=== PATIENT | female | born 1945 | race Caucasian/White ===

== ENCOUNTER 2020-07-14 17:46 | Observation (INO) ==
[2020-07-14] MEDS ORDERED: 0.9 % Sodium Chloride 1,000 ML IVC ONE (18:42)
[2020-07-14] MEDS ORDERED: Ondansetron 4 MG/2 ML VIAL IVP ONE (18:42)
[2020-07-14] MEDS ORDERED: Isovue-370 500 ML BOTTLE IVP ONE (18:43)
[2020-07-14 18:59] LABS: Basophils % 0.6 %; Eosinophils % 0.6 %; Hematocrit 38.8 % (35.3-44.9); Hemoglobin 12.6 g/dL (11.5-15.4); Immature Granulocytes % 0.8 % (0-4); Lymphocytes # 0.6 K/mcL (0.6-4.6); Lymphocytes % 17.8 %; Mean Corpuscular HGB Conc 32.5 g/dL (31.6-35.5); Mean Corpuscular Volume 92.4 fL (83.0-100.0); Mean Platelet Volume 10.3 fL (9.4-12.4); Monocytes # 0.6 K/mcL (0.0-1.3); Monocytes % 16.4 %; Neutrophils # 2.3 K/mcL (1.6-8.9); Platelet Count 144 K/mcL (140-400); Red Cell Distribution Width 14.7 % (11.5-14.5); Segmented Neutrophils % 63.8 %; White Blood Count 3.6 K/mcL (4.3-11.1)
[2020-07-14 19:19] LABS: Alanine Aminotransferase 23 Units/L (7-52); Albumin 4.2 g/dL (3.5-5.7); Albumin/Globulin Ratio 1.4 (1.1-2.2); Alkaline Phosphatase 70 Units/L (34-104); Aspartate Amino Transferase 34 Units/L (13-39); BUN/Creatinine Ratio 25 (6-26); Bilirubin,Total 0.9 mg/dL (0.3-1.0); Blood Urea Nitrogen 30 mg/dL (8-23); Calcium 9.2 mg/dL (8.6-10.3); Carbon Dioxide 29 mEq/L (23-29); Chloride 99 mEq/L (98-107); Glucose 107 mg/dL (70-105); Lipase 39 Units/L (11-82); Osmolality,Calculated 291 (280-300); Potassium 3.7 mEq/L (3.5-5.1); Sodium 137 mEq/L (136-145); Total Protein 7.2 g/dL (6.4-8.9); eGFR For African Americans 52 (> 60); eGFR For Non-African Americans 43 (> 60)
[2020-07-14 19:37] LABS: Bilirubin,Urine Negative (Negative); Blood,Urine Negative (Negative); Clarity,Urine Clear (Clear); Color,Urine Light-Yellow (Yellow); Glucose,Urine (UA) Normal (Normal); Ketones,Urine Negative (Negative); Leukocyte Esterase,Urine Moderate (Negative); Mucus,Urine Few per lpf (None-Few); Nitrite,Urine Negative (Negative); PH,Urine 6.5 pH Units (5.0-8.0); Protein,Urine Negative (Neg-Trace); RBC,Urine 0-3 per hpf (0-3); Specific Gravity,Urine 1.017 (1.010-1.025); Squamous Epithelial Cell,Urine Few per hpf (None-Few); Urobilinogen,Urine Normal (Normal)
[2020-07-14 20:56] LABS: Troponin I < 0.03 ng/mL (< 0.04)
[2020-07-14] MEDS ORDERED: Naloxone 0.4 MG/ML INJ IVP PRN (22:13)
[2020-07-14] MEDS ORDERED: Acetaminophen 325 MG TABLET PO PRN (22:13)
[2020-07-14] MEDS ORDERED: Ondansetron 4 MG/2 ML VIAL IVP PRN (22:13)
[2020-07-14] MEDS ORDERED: Melatonin 3 MG TABLET PO PRN (22:13)
[2020-07-14] MEDS ORDERED: 0.9 % Sodium Chloride 1,000 ML IVC SCH (22:15)
[2020-07-15 00:43] LABS: Hemoglobin 12.3 g/dL (11.5-15.4); Mean Corpuscular HGB Conc 31.5 g/dL (31.6-35.5); Mean Corpuscular Hemoglobin 30.2 pg (28.0-33.3); Mean Corpuscular Volume 95.8 fL (83.0-100.0); Platelet Count 142 K/mcL (140-400); Red Blood Count 4.07 M/mcL (3.82-4.97); Red Cell Distribution Width 14.8 % (11.5-14.5); White Blood Count 3.3 K/mcL (4.3-11.1)
[2020-07-15 00:50] LABS: Calcium 8.8 mg/dL (8.6-10.3); Potassium 3.9 mEq/L (3.5-5.1)
[2020-07-15 01:17] LABS: Folate 21.6 ng/mL (3.0-16.0)
[2020-07-15] MEDS ORDERED: NON-FORMULARY MEDICATION 1 EACH EACH (Oxygen 1 EACH Each) IN SCH (01:30)
[2020-07-15] MEDS: Gabapentin 400 MG CAPSULE PO SCH ×2 (08:18→14:39)
[2020-07-15] MEDS ORDERED: Cyanocobalamin (B-12) 1,000 MCG/ML VIAL SQ ONE (08:53)
[2020-07-15] MEDS ORDERED: HYDROCHLOROTHIAZIDE PO SCH (09:00)
[2020-07-15] MEDS ORDERED: VALSARTAN PO SCH (09:00)
[2020-07-15] MEDS ORDERED: Aspirin Enteric Coated 81 MG Tablet PO SCH (09:00)
[2020-07-15] MEDS ORDERED: Valsartan 160 MG TABLET PO SCH (09:00)
[2020-07-15] MEDS ORDERED: atenoloL 50 MG TABLET PO SCH (09:00)
[2020-07-15] MEDS ORDERED: allopurinoL 100 MG TABLET PO SCH (09:00)
[2020-07-15] MEDS ORDERED: Loratadine 10 MG TABLET PO SCH (09:00)
[2020-07-15] MEDS ORDERED: Cholecalciferol (D-3) 1,000 UNIT (25MCG) TABLET PO SCH (09:00)
[2020-07-15] MEDS ORDERED: hydroCHLOROthiazide 25 MG TABLET PO SCH (09:00)
[2020-07-15 12:54] VITALS: BP 150/63
[2020-07-16] MEDS ORDERED: Tiotropium 10 INH DOSE IH SCH (10:00)
== END 2020-07-15 15:56 | disposition home health service (06) ==
LOC: 3BNU 17:46 → EMEROOARM 17:46 → SUATTDRO 22:13 → 3BNU 23:15
PROVIDERS: ADMIT Student in an Organized Health Care Education/Training Program; ATTEND Internal Medicine

== ENCOUNTER 2020-10-08 20:16 | Inpatient (IN) ==
[2020-10-08] MEDS ORDERED: Vancomycin 2,000 MG/520 ML IV.SOLN IVPB ONE (20:28)
[2020-10-08] MEDS ORDERED: Piperacillin/Tazobactam 3.375 GM in Water for inj. (sterile) 20 ML IVP ONE (20:28)
[2020-10-08 20:56] LABS: Bacteria,Urine Few per hpf (None-Few); Bilirubin,Urine Negative (Negative); Blood,Urine Large (Negative); Clarity,Urine Turbid (Clear); Color,Urine Yellow (Yellow); Glucose,Urine (UA) Normal (Normal); Ketones,Urine Negative (Negative); Leukocyte Esterase,Urine Negative (Negative); Mucus,Urine Few per lpf (None-Few); Nitrite,Urine Negative (Negative); PH,Urine 5.5 pH Units (5.0-8.0); Protein,Urine 70 mg/dL (Neg-Trace); RBC,Urine 0-3 per hpf (0-3); Specific Gravity,Urine 1.021 (1.010-1.025); Squamous Epithelial Cell,Urine Few per hpf (None-Few); Urobilinogen,Urine Normal (Normal); WBC,Urine 0-3 per hpf (0-3)
[2020-10-08] MEDS ORDERED: Ketorolac 15 MG/ML VIAL IVP ONE (21:18)
[2020-10-08 21:27] LABS: Basophils % 0.2 %; Hematocrit 37.7 % (35.3-44.9); Hemoglobin 11.9 g/dL (11.5-15.4); Immature Platelets 3.8 % (1.1-6.1); Lymphocytes # 0.8 K/mcL (0.6-4.6); Lymphocytes % 5.9 %; Mean Corpuscular HGB Conc 31.6 g/dL (31.6-35.5); Mean Corpuscular Hemoglobin 30.9 pg (28.0-33.3); Mean Corpuscular Volume 97.9 fL (83.0-100.0); Mean Platelet Volume 10.7 fL (9.4-12.4); Monocytes # 0.9 K/mcL (0.0-1.3); Monocytes % 6.9 %; Neutrophils # 11.4 K/mcL (1.6-8.9); Platelet Count 115 K/mcL (140-400); Red Blood Count 3.85 M/mcL (3.82-4.97); Red Cell Distribution Width 14.6 % (11.5-14.5); White Blood Count 13.3 K/mcL (4.3-11.1)
[2020-10-08 21:37] LABS: VBG HCO3 33 mEq/L (21-27); VBG PCO2 62 mmHg (41-51); VBG PH 7.33 pH Units (7.32-7.42); VBG PO2 33 mmHg (25-50)
[2020-10-08 21:50] LABS: Adenovirus Not Detected (Not Detect); Bordetella Pertussis Not Detected (Not Detect); Chlamydophila pneumoniae Not Detected (Not Detect); Coronavirus 229E Not Detected (Not Detect); Coronavirus HKU1 Not Detected (Not Detect); Coronavirus NL63 Not Detected (Not Detect); Coronavirus OC43 Not Detected (Not Detect); Human Metapneumovirus Not Detected (Not Detect); Human Rhinovirus/Enterovirus Not Detected (Not Detect); Influenza A Subtype 2009 H1 Not Detected (Not Detect); Influenza B Not Detected (Not Detect); Mycoplasma pneumoniae Not Detected (Not Detect); Parainfluenza Virus 1 Not Detected (Not Detect); Parainfluenza Virus 2 Not Detected (Not Detect); Parainfluenza Virus 3 Not Detected (Not Detect); Parainfluenza Virus 4 Not Detected (Not Detect); Respiratory Syncytial Virus Not Detected (Not Detect); SARS-CoV-2 Not Detected (Not Detect)
[2020-10-08 21:55] LABS: Albumin 3.9 g/dL (3.5-5.7); Albumin/Globulin Ratio 1.3 (1.1-2.2); Bilirubin,Direct 0.6 mg/dL (0.0-0.2); Bilirubin,Indirect 1.6 mg/dL (0.0-1.0); Bilirubin,Total 2.2 mg/dL (0.3-1.0); Calcium 9.7 mg/dL (8.6-10.3); Globulin 2.9 g/dL (2.4-3.5); Magnesium 1.4 mg/dL (1.6-2.6); Potassium 3.2 mEq/L (3.5-5.1); Total Protein 6.8 g/dL (6.4-8.9); Troponin I 14.61 ng/mL (< 0.04)
[2020-10-08 22:05] LABS: Thyroid Stimulating Hormone 1.28 mcIU/mL (0.340-5.600)
[2020-10-08] MEDS ORDERED: 0.9 % Sodium Chloride 500 ML IVC ONE (22:10)
[2020-10-08] MEDS ORDERED: *HR* Heparin 5,000 UNIT/ML VIAL IVP ONE (23:30)
[2020-10-08] MEDS ORDERED: *HR* Heparin 5,000 UNIT/ML VIAL IVP PRN ×2 (23:30)
[2020-10-09] MEDS: Heparin 25,000UNIT/250ML 1/2NS 25,000 UNIT/250 ML IV.SOLN IVC SCH (00:22)
[2020-10-09] MEDS ORDERED: 0.9 % Sodium Chloride 500 ML IVC ONE ×2 (01:03→01:48)
[2020-10-09] MEDS ORDERED: Naloxone 0.4 MG/ML INJ IVP PRN (02:50)
[2020-10-09] MEDS ORDERED: Ondansetron 4 MG/2 ML VIAL IVP PRN (02:50)
[2020-10-09] MEDS ORDERED: Perflutren Lipid Microsphere 1.3 ML in 0.9 % Sodium Chloride 8.7 ML IVP PRN ×2 (03:36→08:49)
[2020-10-09] MEDS: 0.9 % Sodium Chloride 1,000 ML IVC SCH ×2 (03:59→09:41)
[2020-10-09] MEDS: Azithromycin 500 MG in 0.9 % Sodium Chloride 250 ML IVPB SCH (04:04)
[2020-10-09 04:16] LABS: ABG Base Excess 2 mEq/L (-2 to 3); ABG HCO3 26 mEq/L (21-27); ABG Oxygen Saturation 94 % (95-98); ABG PCO2 37 mmHg (35-45); ABG PH 7.45 pH Units (7.32-7.45); ABG PO2 66 mmHg (85-104); ABG TCO2 27 mEq/L (20-26); Blood Gas Modality BiLevel; Blood Gas VT 480 cc
[2020-10-09] MEDS ORDERED: Acetaminophen IV 1,000 MG/100 ML BAG IVPB ONE (05:48)
[2020-10-09 07:20] LABS: Basophils % 0.3 %; Hemoglobin 11.2 g/dL (11.5-15.4); Immature Granulocytes % 0.7 % (0-4); Lymphocytes # 0.9 K/mcL (0.6-4.6); Lymphocytes % 8.3 %; Mean Corpuscular HGB Conc 31.1 g/dL (31.6-35.5); Mean Corpuscular Hemoglobin 30.4 pg (28.0-33.3); Mean Corpuscular Volume 97.8 fL (83.0-100.0); Mean Platelet Volume 10.8 fL (9.4-12.4); Monocytes # 0.5 K/mcL (0.0-1.3); Monocytes % 4.1 %; Neutrophils # 9.7 K/mcL (1.6-8.9); Platelet Count 106 K/mcL (140-400); Red Blood Count 3.68 M/mcL (3.82-4.97); Red Cell Distribution Width 14.6 % (11.5-14.5); Segmented Neutrophils % 86.6 %; White Blood Count 11.2 K/mcL (4.3-11.1)
[2020-10-09] MEDS: Piperacillin/Tazobactam 3.375 GM in 0.9 % Sodium Chloride Mini Bag 100 ML IVPB SCH ×3 (08:30→23:18)
[2020-10-09 08:34] LABS: Albumin 3.3 g/dL (3.5-5.7); Albumin/Globulin Ratio 1.2 (1.1-2.2); Calcium 8.6 mg/dL (8.6-10.3); Globulin 2.7 g/dL (2.4-3.5); Potassium 3.3 mEq/L (3.5-5.1); Thyroid Stimulating Hormone 1.346 mcIU/mL (0.340-5.600); Troponin I 25.84 ng/mL (< 0.04)
[2020-10-09] MEDS ORDERED: Aspirin 81 MG TAB.CHEW PO SCH (09:00)
[2020-10-09] MEDS: Norepinephrine 4 MG/254 ML IV.SOLN IVC SCH ×2 (09:15→19:51)
[2020-10-09] MEDS ORDERED: 0.9 % Sodium Chloride 1,000 ML IVC SCH (10:00)
[2020-10-09] MEDS ORDERED: Albuterol 2.5 MG/3 ML NEBULIZER IH PRN (11:06)
[2020-10-09] MEDS ORDERED: Ringer's Solution, Lactated 250 ML IV.SOLN IVC SCH (11:15)
[2020-10-09] MEDS: Ipratropium/Albuterol Neb 3 ML IH SCH ×3 (11:25→20:08)
[2020-10-09] MEDS ORDERED: Ringers Solution, Lactated 1,000 ML IVC SCH (11:30)
[2020-10-09 11:31] LABS: Estimated Average Glucose 117 mg/dl; Hemoglobin A1C 5.7 %
[2020-10-09] MEDS ORDERED: Vancomycin 1 EACH in 0.9 % Sodium Chloride 1 ML IVPB PRN (14:00)
[2020-10-09] MEDS: Ringers Solution, Lactated 1,000 ML IVC SCH (18:27)
[2020-10-09 19:08] LABS: VBG Ionized Calcium 1.06 mmol/L (1.15-1.35)
[2020-10-10] MEDS: Ipratropium/Albuterol Neb 3 ML IH SCH ×7 (00:20→23:22)
[2020-10-10] MEDS: Norepinephrine 4 MG/254 ML IV.SOLN IVC SCH ×2 (01:25→14:00)
[2020-10-10] MEDS: Azithromycin 500 MG in 0.9 % Sodium Chloride 250 ML IVPB SCH (03:25)
[2020-10-10 03:57] LABS: Hematocrit 32.8 % (35.3-44.9); Hemoglobin 10.1 g/dL (11.5-15.4); Mean Corpuscular HGB Conc 30.8 g/dL (31.6-35.5); Mean Corpuscular Hemoglobin 30.3 pg (28.0-33.3); Mean Corpuscular Volume 98.5 fL (83.0-100.0); Mean Platelet Volume 10.6 fL (9.4-12.4); Red Blood Count 3.33 M/mcL (3.82-4.97); Red Cell Distribution Width 15.1 % (11.5-14.5); White Blood Count 9.9 K/mcL (4.3-11.1)
[2020-10-10] MEDS: Ringers Solution, Lactated 1,000 ML IVC SCH (04:27)
[2020-10-10 05:58] LABS: Alanine Aminotransferase 33 Units/L (7-52); Albumin 3.2 g/dL (3.5-5.7); Albumin/Globulin Ratio 1.2 (1.1-2.2); Alkaline Phosphatase 68 Units/L (34-104); Aspartate Amino Transferase 166 Units/L (13-39); BUN/Creatinine Ratio 19 (6-26); Bilirubin,Total 1.3 mg/dL (0.3-1.0); Blood Urea Nitrogen 49 mg/dL (8-23); Calcium 7.9 mg/dL (8.6-10.3); Carbon Dioxide 27 mEq/L (23-29); Chloride 104 mEq/L (98-107); Creatine Kinase > 20000 Units/L (30-223); Globulin 2.7 g/dL (2.4-3.5); Glucose 135 mg/dL (70-105); Magnesium 1.5 mg/dL (1.6-2.6); Osmolality,Calculated 307 (280-300); Phosphorous 4.9 mg/dL (2.7-4.5); Potassium 3.6 mEq/L (3.5-5.1); Sodium 141 mEq/L (136-145); Total Protein 5.9 g/dL (6.4-8.9); eGFR For African Americans 22 (> 60); eGFR For Non-African Americans 18 (> 60)
[2020-10-10] MEDS: Heparin 25,000UNIT/250ML 1/2NS 25,000 UNIT/250 ML IV.SOLN IVC SCH ×2 (06:06→10:37)
[2020-10-10] MEDS ORDERED: Perflutren Lipid Microsphere 1.3 ML in 0.9 % Sodium Chloride 8.7 ML IVP PRN (07:02)
[2020-10-10] MEDS: Aspirin Enteric Coated 81 MG Tablet PO SCH (08:08)
[2020-10-10] MEDS: Piperacillin/Tazobactam 3.375 GM in 0.9 % Sodium Chloride Mini Bag 100 ML IVPB SCH ×2 (08:08→16:43)
[2020-10-10] MEDS: 0.9 % Sodium Chloride 1,000 ML IVC SCH ×3 (12:29→20:31)
[2020-10-10 13:41] LABS: Amorphous Sediment,Urine Few per hpf (None-Few); Bacteria,Urine Few per hpf (None-Few); Bilirubin,Urine Negative (Negative); Blood,Urine Large (Negative); Clarity,Urine Ex.Turbid (Clear); Color,Urine Yellow (Yellow); Glucose,Urine (UA) Normal (Normal); Ketones,Urine Negative (Negative); Leukocyte Esterase,Urine Small (Negative); Nitrite,Urine Negative (Negative); PH,Urine 5.5 pH Units (5.0-8.0); Protein,Urine 50 mg/dL (Neg-Trace); RBC,Urine TNTC per hpf (0-3); Specific Gravity,Urine 1.023 (1.010-1.025); Squamous Epithelial Cell,Urine Few per hpf (None-Few); Urobilinogen,Urine Normal (Normal); WBC,Urine 50-100 per hpf (0-3)
[2020-10-10 18:58] LABS: Campylobacter by PCR Not detected (Not detect)
[2020-10-10 19:00] LABS: Adenovirus F 40/41 PCR Not detected (Not detect); Astrovirus PCR Not detected (Not detect); C.difficile Toxin A/B Gene PCR DETECTED (Not detect); Cryptosporidium by PCR Not detected (Not detect); Cyclospora cayetanensis PCR Not detected (Not detect); E. coli O157 by PCR Not detected (Not detect); Entamoeba histolytica PCR Not detected (Not detect); Enteroaggregative E.coli(EAEC) Not detected (Not detect); Enteropathogenic E.coli(EPEC) DETECTED (Not detect); Enterotoxigenic E.coli (ETEC) Not detected (Not detect); Giardia lamblia PCR Not detected (Not detect); Norovirus GI/GII PCR Not detected (Not detect); Plesiomonas shigelloides PCR Not detected (Not detect); Rotavirus A PCR Not detected (Not detect); Salmonella PCR Not detected (Not detect); Sapovirus PCR Not detected (Not detect); Shig/EnteroinvasiveE coli EIEC Not detected (Not detect); Shigalike tox-prod E coli STEC Not detected (Not detect); Vibrio PCR Not detected (Not detect); Vibrio cholerae PCR Not detected (Not detect); Yersinia enterocolitica PCR Not detected (Not detect)
[2020-10-10] MEDS: Vancomycin Oral Soln 125 MG/2.5 ML UDC PO SCH (21:30)
[2020-10-11] MEDS: MetroNIDAZOLE 500 MG/100 ML 500 MG/100 ML BAG IVPB SCH ×3 (00:09→16:13)
[2020-10-11] MEDS: 0.9 % Sodium Chloride 1,000 ML IVC SCH ×4 (00:31→10:06)
[2020-10-11] MEDS: Ipratropium/Albuterol Neb 3 ML IH SCH ×6 (03:50→23:14)
[2020-10-11 04:04] LABS: Basophils % 0.2 %; Eosinophils % 0.2 %; Hematocrit 27.2 % (35.3-44.9); Hemoglobin 8.7 g/dL (11.5-15.4); Immature Granulocytes % 1.1 % (0-4); Lymphocytes # 0.8 K/mcL (0.6-4.6); Lymphocytes % 14.3 %; Mean Corpuscular Hemoglobin 31.5 pg (28.0-33.3); Mean Corpuscular Volume 98.6 fL (83.0-100.0); Mean Platelet Volume 10.7 fL (9.4-12.4); Monocytes # 0.5 K/mcL (0.0-1.3); Monocytes % 8.2 %; Neutrophils # 4.2 K/mcL (1.6-8.9); Platelet Count 106 K/mcL (140-400); Red Blood Count 2.76 M/mcL (3.82-4.97); Red Cell Distribution Width 15.2 % (11.5-14.5); White Blood Count 5.5 K/mcL (4.3-11.1)
[2020-10-11 04:21] LABS: Calcium 7.4 mg/dL (8.6-10.3); Magnesium 1.6 mg/dL (1.6-2.6); Potassium 3.6 mEq/L (3.5-5.1)
[2020-10-11] MEDS: Aspirin Enteric Coated 81 MG Tablet PO SCH (07:49)
[2020-10-11] MEDS: Vancomycin Oral Soln 125 MG/2.5 ML UDC PO SCH ×4 (07:49→20:57)
[2020-10-11 09:07] LABS: Troponin I 2.09 ng/mL (< 0.04)
[2020-10-11 09:09] LABS: VBG Ionized Calcium 1.07 mmol/L (1.15-1.35)
[2020-10-11] MEDS ORDERED: Furosemide 40 MG/4 ML VIAL ONE (09:59)
[2020-10-11] MEDS ORDERED: Furosemide 40 MG/4 ML VIAL IVP ONE ×2 (10:04→12:33)
[2020-10-11] MEDS ORDERED: Ondansetron 4 MG/2 ML VIAL IVP PRN (10:21)
[2020-10-11] MEDS ORDERED: 0.9 % Sodium Chloride 1,000 ML IVC SCH (10:21)
[2020-10-11] MEDS ORDERED: Naloxone 0.4 MG/ML INJ IVP PRN (10:21)
[2020-10-11] MEDS ORDERED: Albuterol 2.5 MG/3 ML NEBULIZER IH PRN (10:21)
[2020-10-11] MEDS ORDERED: *HR* Heparin 5,000 UNIT/ML VIAL IVP PRN ×2 (10:21)
[2020-10-11] MEDS ORDERED: Perflutren Lipid Microsphere 1.3 ML in 0.9 % Sodium Chloride 8.7 ML IVP PRN ×3 (10:21)
[2020-10-11] MEDS: Heparin 25,000UNIT/250ML 1/2NS 25,000 UNIT/250 ML IV.SOLN IVC SCH (12:58)
[2020-10-11] MEDS ORDERED: Vancomycin 2,000 MG/520 ML IV.SOLN IVPB ONE (15:00)
[2020-10-11] MEDS: Calcium Gluconate 1gm/50mL 1 GM/50 ML BAG IVPB SCH ×2 (16:12→17:12)
[2020-10-11] MEDS ORDERED: Vancomycin 1,500 MG/265 ML IV.SOLN IVPB ONE (18:08)
[2020-10-11] MEDS ORDERED: *HR* LORazepam 2 MG/ML VIAL IVP PRN (18:26)
[2020-10-12] MEDS: MetroNIDAZOLE 500 MG/100 ML 500 MG/100 ML BAG IVPB SCH ×2 (00:10→07:54)
[2020-10-12 00:47] LABS: Hematocrit 29.3 % (35.3-44.9); Hemoglobin 8.7 g/dL (11.5-15.4); Mean Corpuscular HGB Conc 29.7 g/dL (31.6-35.5); Mean Corpuscular Hemoglobin 29.9 pg (28.0-33.3); Mean Corpuscular Volume 100.7 fL (83.0-100.0); Mean Platelet Volume 10.5 fL (9.4-12.4); Platelet Count 121 K/mcL (140-400); Red Blood Count 2.91 M/mcL (3.82-4.97); Red Cell Distribution Width 15.1 % (11.5-14.5); White Blood Count 5.7 K/mcL (4.3-11.1)
[2020-10-12 01:07] LABS: Albumin 3.2 g/dL (3.5-5.7); Albumin/Globulin Ratio 1.2 (1.1-2.2); Bilirubin,Total 0.6 mg/dL (0.3-1.0); Globulin 2.6 g/dL (2.4-3.5); Magnesium 1.6 mg/dL (1.6-2.6); Potassium 3.5 mEq/L (3.5-5.1); Total Protein 5.8 g/dL (6.4-8.9)
[2020-10-12] MEDS: Ipratropium/Albuterol Neb 3 ML IH SCH ×6 (03:53→23:13)
[2020-10-12] MEDS: Heparin 25,000UNIT/250ML 1/2NS 25,000 UNIT/250 ML IV.SOLN IVC SCH (05:43)
[2020-10-12] MEDS: Vancomycin Oral Soln 125 MG/2.5 ML UDC PO SCH ×4 (07:53→20:31)
[2020-10-12] MEDS: Aspirin Enteric Coated 81 MG Tablet PO SCH (07:54)
[2020-10-12] MEDS: Furosemide 40 MG/4 ML VIAL IVP SCH ×2 (16:17→20:21)
[2020-10-12] MEDS: *HR* Heparin 5,000 UNIT/ML VIAL SQ SCH (16:18)
[2020-10-12] MEDS ORDERED: Vancomycin 2,000 MG/520 ML IV.SOLN IVPB SCH (22:00)
[2020-10-13 00:36] LABS: Basophils % 0.5 %; Eosinophils # 0.1 K/mcL (0.0-0.6); Eosinophils % 1.4 %; Hematocrit 29.7 % (35.3-44.9); Hemoglobin 9.1 g/dL (11.5-15.4); Immature Granulocytes % 2.2 % (0-4); Immature Platelets 2.2 % (1.1-6.1); Lymphocytes # 0.7 K/mcL (0.6-4.6); Lymphocytes % 10.8 %; Mean Corpuscular HGB Conc 30.6 g/dL (31.6-35.5); Mean Corpuscular Hemoglobin 30.5 pg (28.0-33.3); Mean Corpuscular Volume 99.7 fL (83.0-100.0); Mean Platelet Volume 9.8 fL (9.4-12.4); Monocytes # 0.5 K/mcL (0.0-1.3); Monocytes % 7.6 %; Neutrophils # 4.9 K/mcL (1.6-8.9); Platelet Count 134 K/mcL (140-400); Red Blood Count 2.98 M/mcL (3.82-4.97); Red Cell Distribution Width 14.6 % (11.5-14.5); Segmented Neutrophils % 77.5 %; White Blood Count 6.3 K/mcL (4.3-11.1)
[2020-10-13 00:53] LABS: Calcium 8.2 mg/dL (8.6-10.3); Magnesium 1.5 mg/dL (1.6-2.6); Phosphorous 1.9 mg/dL (2.7-4.5); Potassium 3.2 mEq/L (3.5-5.1)
[2020-10-13] MEDS: Ipratropium/Albuterol Neb 3 ML IH SCH ×6 (03:26→23:30)
[2020-10-13] MEDS: *HR* Heparin 5,000 UNIT/ML VIAL SQ SCH ×2 (06:29→17:29)
[2020-10-13] MEDS ORDERED: Potassium Phosphate 44 MEQ in 0.9 % Sodium Chloride 250 ML IVPB ONE (08:01)
[2020-10-13] MEDS: Vancomycin Oral Soln 125 MG/2.5 ML UDC PO SCH ×4 (09:25→21:00)
[2020-10-13] MEDS: Aspirin Enteric Coated 81 MG Tablet PO SCH (09:25)
[2020-10-13] MEDS: Furosemide 40 MG/4 ML VIAL IVP SCH ×2 (09:26→21:00)
[2020-10-13] MEDS: Lactobacillus 1 EACH CAP.SPRINK PO SCH ×2 (09:27→20:59)
[2020-10-13] MEDS: Doxycycline 100 MG CAPSULE PO SCH (20:59)
[2020-10-14] MEDS: Ipratropium/Albuterol Neb 3 ML IH SCH ×6 (03:48→23:00)
[2020-10-14 04:01] LABS: Basophils # 0.1 K/mcL (0.0-0.2); Basophils % 0.8 %; Eosinophils # 0.2 K/mcL (0.0-0.6); Eosinophils % 2.3 %; Hematocrit 28.7 % (35.3-44.9); Hemoglobin 8.9 g/dL (11.5-15.4); Immature Granulocytes % 3.9 % (0-4); Lymphocytes # 0.9 K/mcL (0.6-4.6); Lymphocytes % 11.2 %; Mean Corpuscular Hemoglobin 30.3 pg (28.0-33.3); Mean Corpuscular Volume 97.6 fL (83.0-100.0); Mean Platelet Volume 10.6 fL (9.4-12.4); Monocytes # 0.7 K/mcL (0.0-1.3); Monocytes % 8.7 %; Neutrophils # 5.6 K/mcL (1.6-8.9); Platelet Count 180 K/mcL (140-400); Red Blood Count 2.94 M/mcL (3.82-4.97); Red Cell Distribution Width 14.6 % (11.5-14.5); Segmented Neutrophils % 73.1 %; White Blood Count 7.7 K/mcL (4.3-11.1)
[2020-10-14 04:23] LABS: Calcium 8.9 mg/dL (8.6-10.3); Magnesium 1.5 mg/dL (1.6-2.6); Phosphorous 2.1 mg/dL (2.7-4.5); Potassium 3.5 mEq/L (3.5-5.1)
[2020-10-14] MEDS: *HR* Heparin 5,000 UNIT/ML VIAL SQ SCH ×2 (05:20→16:40)
[2020-10-14] MEDS: Lactobacillus 1 EACH CAP.SPRINK PO SCH ×2 (09:39→20:45)
[2020-10-14] MEDS: Vancomycin Oral Soln 125 MG/2.5 ML UDC PO SCH ×4 (09:40→20:46)
[2020-10-14] MEDS: Doxycycline 100 MG CAPSULE PO SCH ×2 (09:40→20:46)
[2020-10-14] MEDS: Aspirin Enteric Coated 81 MG Tablet PO SCH (09:40)
[2020-10-15] MEDS: Ipratropium/Albuterol Neb 3 ML IH SCH ×6 (04:13→23:09)
[2020-10-15] MEDS: *HR* Heparin 5,000 UNIT/ML VIAL SQ SCH ×2 (05:17→17:06)
[2020-10-15 06:04] LABS: Basophils # 0.1 K/mcL (0.0-0.2); Basophils % 0.7 %; Eosinophils # 0.2 K/mcL (0.0-0.6); Eosinophils % 2.7 %; Hematocrit 31.2 % (35.3-44.9); Hemoglobin 9.6 g/dL (11.5-15.4); Immature Granulocytes % 6.3 % (0-4); Lymphocytes # 0.9 K/mcL (0.6-4.6); Lymphocytes % 12.6 %; Mean Corpuscular HGB Conc 30.8 g/dL (31.6-35.5); Mean Corpuscular Hemoglobin 30.4 pg (28.0-33.3); Mean Corpuscular Volume 98.7 fL (83.0-100.0); Mean Platelet Volume 9.9 fL (9.4-12.4); Monocytes # 0.7 K/mcL (0.0-1.3); Neutrophils # 5.1 K/mcL (1.6-8.9); Platelet Count 229 K/mcL (140-400); Red Blood Count 3.16 M/mcL (3.82-4.97); Red Cell Distribution Width 14.6 % (11.5-14.5); Segmented Neutrophils % 68.7 %; White Blood Count 7.4 K/mcL (4.3-11.1)
[2020-10-15 06:25] LABS: BUN/Creatinine Ratio 19 (6-26); Blood Urea Nitrogen 20 mg/dL (8-23); Calcium 9.3 mg/dL (8.6-10.3); Carbon Dioxide 37 mEq/L (23-29); Chloride 99 mEq/L (98-107); Creatine Kinase 288 Units/L (30-223); Glucose 116 mg/dL (70-105); Magnesium 1.8 mg/dL (1.6-2.6); Osmolality,Calculated 296 (280-300); Potassium 3.5 mEq/L (3.5-5.1); Sodium 141 mEq/L (136-145); eGFR For African Americans > 60 (> 60); eGFR For Non-African Americans 50 (> 60)
[2020-10-15] MEDS: Aspirin Enteric Coated 81 MG Tablet PO SCH (08:11)
[2020-10-15] MEDS: Doxycycline 100 MG CAPSULE PO SCH ×3 (08:11→21:38)
[2020-10-15] MEDS: Lactobacillus 1 EACH CAP.SPRINK PO SCH ×3 (08:11→21:38)
[2020-10-15] MEDS: Vancomycin Oral Soln 125 MG/2.5 ML UDC PO SCH ×5 (08:14→21:38)
[2020-10-15] MEDS ORDERED: hydroCHLOROthiazide 25 MG TABLET PO SCH (12:30)
[2020-10-15] MEDS: Valsartan 160 MG TABLET PO SCH (12:37)
[2020-10-15] MEDS: Gabapentin 400 MG CAPSULE PO SCH ×3 (17:04→21:38)
[2020-10-15] MEDS: carvediloL 6.25 MG TABLET PO SCH (17:05)
[2020-10-15 21:11] LABS: ABG Base Excess 10 mEq/L (-2 to 3); ABG HCO3 37 mEq/L (21-27); ABG Oxygen Saturation 93 % (95-98); ABG PCO2 63 mmHg (35-45); ABG PH 7.38 pH Units (7.32-7.45); ABG PO2 73 mmHg (85-104); ABG TCO2 39 mEq/L (20-26); Blood Gas VT 480 cc
[2020-10-15 21:39] LABS: Basophils % 0.6 %; Eosinophils # 0.1 K/mcL (0.0-0.6); Eosinophils % 1.7 %; Hematocrit 31.5 % (35.3-44.9); Hemoglobin 9.7 g/dL (11.5-15.4); Immature Granulocytes % 4.7 % (0-4); Lymphocytes # 0.6 K/mcL (0.6-4.6); Lymphocytes % 7.8 %; Mean Corpuscular HGB Conc 30.8 g/dL (31.6-35.5); Mean Corpuscular Hemoglobin 30.5 pg (28.0-33.3); Mean Corpuscular Volume 99.1 fL (83.0-100.0); Mean Platelet Volume 9.3 fL (9.4-12.4); Monocytes # 0.7 K/mcL (0.0-1.3); Monocytes % 9.3 %; Neutrophils # 5.3 K/mcL (1.6-8.9); Platelet Count 247 K/mcL (140-400); Red Blood Count 3.18 M/mcL (3.82-4.97); Red Cell Distribution Width 14.6 % (11.5-14.5); Segmented Neutrophils % 75.9 %
[2020-10-15 22:02] LABS: BUN/Creatinine Ratio 19 (6-26); Blood Urea Nitrogen 19 mg/dL (8-23); Calcium 9.2 mg/dL (8.6-10.3); Carbon Dioxide 35 mEq/L (23-29); Chloride 99 mEq/L (98-107); Glucose 147 mg/dL (70-105); Osmolality,Calculated 297 (280-300); Potassium 3.7 mEq/L (3.5-5.1); Sodium 141 mEq/L (136-145); eGFR For African Americans > 60 (> 60); eGFR For Non-African Americans 53 (> 60)
[2020-10-15 22:04] LABS: Troponin I 0.26 ng/mL (< 0.04)
[2020-10-16 00:02] LABS: ABG Base Excess 11 mEq/L (-2 to 3); ABG HCO3 38 mEq/L (21-27); ABG Oxygen Saturation 93 % (95-98); ABG PCO2 64 mmHg (35-45); ABG PH 7.38 pH Units (7.32-7.45); ABG PO2 72 mmHg (85-104); ABG TCO2 40 mEq/L (20-26); Blood Gas VT 480 cc
[2020-10-16] MEDS: Ipratropium/Albuterol Neb 3 ML IH SCH ×6 (03:51→23:15)
[2020-10-16 05:12] LABS: Basophils # 0.1 K/mcL (0.0-0.2); Basophils % 0.9 %; Eosinophils # 0.2 K/mcL (0.0-0.6); Eosinophils % 2.5 %; Hematocrit 31.2 % (35.3-44.9); Hemoglobin 9.4 g/dL (11.5-15.4); Immature Granulocytes % 4.4 % (0-4); Lymphocytes # 0.8 K/mcL (0.6-4.6); Lymphocytes % 12.8 %; Mean Corpuscular HGB Conc 30.1 g/dL (31.6-35.5); Mean Corpuscular Hemoglobin 30.6 pg (28.0-33.3); Mean Corpuscular Volume 101.6 fL (83.0-100.0); Mean Platelet Volume 9.8 fL (9.4-12.4); Monocytes # 0.7 K/mcL (0.0-1.3); Monocytes % 10.9 %; Neutrophils # 4.4 K/mcL (1.6-8.9); Platelet Count 248 K/mcL (140-400); Red Blood Count 3.07 M/mcL (3.82-4.97); Red Cell Distribution Width 14.9 % (11.5-14.5); Segmented Neutrophils % 68.5 %; White Blood Count 6.4 K/mcL (4.3-11.1)
[2020-10-16] MEDS: *HR* Heparin 5,000 UNIT/ML VIAL SQ SCH ×2 (05:18→17:48)
[2020-10-16 05:34] LABS: Calcium 9.2 mg/dL (8.6-10.3); Magnesium 1.8 mg/dL (1.6-2.6); Phosphorous 3.4 mg/dL (2.7-4.5); Potassium 3.7 mEq/L (3.5-5.1)
[2020-10-16] MEDS: Valsartan 160 MG TABLET PO SCH (09:52)
[2020-10-16] MEDS: Cyanocobalamin (B-12) 1,000 MCG TABLET PO SCH (09:53)
[2020-10-16] MEDS: Lactobacillus 1 EACH CAP.SPRINK PO SCH ×2 (09:53→20:58)
[2020-10-16] MEDS: Doxycycline 100 MG CAPSULE PO SCH (09:53)
[2020-10-16] MEDS: calcitrioL 0.25 MCG CAPSULE PO SCH (09:53)
[2020-10-16] MEDS: Gabapentin 400 MG CAPSULE PO SCH ×3 (09:53→20:58)
[2020-10-16] MEDS: Aspirin Enteric Coated 81 MG Tablet PO SCH (09:53)
[2020-10-16] MEDS: carvediloL 6.25 MG TABLET PO SCH ×2 (09:53→17:49)
[2020-10-16] MEDS: allopurinoL 100 MG TABLET PO SCH (09:56)
[2020-10-16] MEDS: Vancomycin Oral Soln 125 MG/2.5 ML UDC PO SCH ×4 (09:56→20:58)
[2020-10-16] MEDS ORDERED: Isovue-370 500 ML BOTTLE IVP ONE (13:38)
[2020-10-16] MEDS: Albumin 25% 25gram/100mL 25 GM/100 ML IV.SOLN IVPB SCH (15:36)
[2020-10-17] MEDS: Albumin 25% 25gram/100mL 25 GM/100 ML IV.SOLN IVPB SCH ×4 (01:40→23:34)
[2020-10-17 01:51] LABS: Basophils % 0.6 %; Eosinophils # 0.2 K/mcL (0.0-0.6); Eosinophils % 2.9 %; Hematocrit 28.5 % (35.3-44.9); Hemoglobin 8.7 g/dL (11.5-15.4); Immature Granulocytes % 3.1 % (0-4); Lymphocytes # 0.9 K/mcL (0.6-4.6); Lymphocytes % 14.3 %; Mean Corpuscular HGB Conc 30.5 g/dL (31.6-35.5); Mean Corpuscular Hemoglobin 30.7 pg (28.0-33.3); Mean Corpuscular Volume 100.7 fL (83.0-100.0); Mean Platelet Volume 9.3 fL (9.4-12.4); Monocytes # 0.7 K/mcL (0.0-1.3); Neutrophils # 4.5 K/mcL (1.6-8.9); Platelet Count 236 K/mcL (140-400); Red Blood Count 2.83 M/mcL (3.82-4.97); Red Cell Distribution Width 14.8 % (11.5-14.5); Segmented Neutrophils % 69.1 %; White Blood Count 6.5 K/mcL (4.3-11.1)
[2020-10-17 01:55] LABS: VBG HCO3 41 mEq/L (21-27); VBG PCO2 75 mmHg (41-51); VBG PH 7.34 pH Units (7.32-7.42); VBG PO2 56 mmHg (25-50)
[2020-10-17 02:14] LABS: Albumin 3.2 g/dL (3.5-5.7); Albumin/Globulin Ratio 1.1 (1.1-2.2); Bilirubin,Total 0.7 mg/dL (0.3-1.0); Calcium 9.4 mg/dL (8.6-10.3); Globulin 2.8 g/dL (2.4-3.5); Potassium 3.8 mEq/L (3.5-5.1)
[2020-10-17] MEDS: Ipratropium/Albuterol Neb 3 ML IH SCH ×7 (03:55→23:50)
[2020-10-17] MEDS: *HR* Heparin 5,000 UNIT/ML VIAL SQ SCH ×2 (05:26→17:45)
[2020-10-17] MEDS: Lactobacillus 1 EACH CAP.SPRINK PO SCH ×2 (09:15→20:37)
[2020-10-17] MEDS: Cyanocobalamin (B-12) 1,000 MCG TABLET PO SCH (09:15)
[2020-10-17] MEDS: Gabapentin 400 MG CAPSULE PO SCH ×3 (09:15→20:37)
[2020-10-17] MEDS: Aspirin Enteric Coated 81 MG Tablet PO SCH (09:15)
[2020-10-17] MEDS: carvediloL 6.25 MG TABLET PO SCH ×2 (09:15→15:12)
[2020-10-17] MEDS: allopurinoL 100 MG TABLET PO SCH (09:15)
[2020-10-17] MEDS: Vancomycin Oral Soln 125 MG/2.5 ML UDC PO SCH ×4 (09:15→20:37)
[2020-10-17] MEDS: calcitrioL 0.25 MCG CAPSULE PO SCH (09:15)
[2020-10-17 14:39] LABS: Bacteria,Urine Few per hpf (None-Few); Bilirubin,Urine Negative (Negative); Blood,Urine Large (Negative); Clarity,Urine Clear (Clear); Color,Urine Light-Yellow (Yellow); Glucose,Urine (UA) Normal (Normal); Hyaline Casts,Urine Few per lpf (None Seen); Ketones,Urine Negative (Negative); Leukocyte Esterase,Urine Trace (Negative); Mucus,Urine Few per lpf (None-Few); Nitrite,Urine Negative (Negative); PH,Urine 5.5 pH Units (5.0-8.0); Protein,Urine 30 mg/dL (Neg-Trace); RBC,Urine TNTC per hpf (0-3); Specific Gravity,Urine 1.022 (1.010-1.025); Squamous Epithelial Cell,Urine Few per hpf (None-Few); Urobilinogen,Urine Normal (Normal)
[2020-10-18 01:38] LABS: Hematocrit 27.4 % (35.3-44.9); Mean Corpuscular HGB Conc 29.2 g/dL (31.6-35.5); Mean Corpuscular Hemoglobin 30.4 pg (28.0-33.3); Mean Corpuscular Volume 104.2 fL (83.0-100.0); Mean Platelet Volume 9.5 fL (9.4-12.4); Platelet Count 221 K/mcL (140-400); Red Blood Count 2.63 M/mcL (3.82-4.97); Red Cell Distribution Width 14.8 % (11.5-14.5); White Blood Count 6.1 K/mcL (4.3-11.1)
[2020-10-18 01:51] LABS: Calcium 9.6 mg/dL (8.6-10.3); Potassium 4.2 mEq/L (3.5-5.1)
[2020-10-18] MEDS: Ipratropium/Albuterol Neb 3 ML IH SCH ×5 (03:43→20:07)
[2020-10-18] MEDS: *HR* Heparin 5,000 UNIT/ML VIAL SQ SCH ×2 (06:11→16:38)
[2020-10-18] MEDS: Albumin 25% 25gram/100mL 25 GM/100 ML IV.SOLN IVPB SCH (08:28)
[2020-10-18] MEDS: Vancomycin Oral Soln 125 MG/2.5 ML UDC PO SCH ×4 (08:28→20:01)
[2020-10-18] MEDS: Aspirin Enteric Coated 81 MG Tablet PO SCH (08:29)
[2020-10-18] MEDS: Lactobacillus 1 EACH CAP.SPRINK PO SCH ×2 (08:29→20:01)
[2020-10-18] MEDS: calcitrioL 0.25 MCG CAPSULE PO SCH (08:29)
[2020-10-18] MEDS: allopurinoL 100 MG TABLET PO SCH (08:29)
[2020-10-18] MEDS: Gabapentin 400 MG CAPSULE PO SCH ×3 (08:29→20:01)
[2020-10-18] MEDS: Cyanocobalamin (B-12) 1,000 MCG TABLET PO SCH (08:29)
[2020-10-18] MEDS: cefTRIAXone 1,000 MG in Water for inj. (sterile) 10 ML IVP SCH (08:29)
[2020-10-18] MEDS: carvediloL 6.25 MG TABLET PO SCH ×2 (08:29→16:38)
[2020-10-18 15:50] LABS: Protein/Creatinine Ratio,Urine 0.19 mg/mg (0.00-0.20)
[2020-10-18 16:25] LABS: Bacteria,Urine Few per hpf (None-Few); Bilirubin,Urine Negative (Negative); Blood,Urine Large (Negative); Budding Yeast,Urine Few per hpf (None Seen); Clarity,Urine Turbid (Clear); Color,Urine Yellow (Yellow); Glucose,Urine (UA) Normal (Normal); Hyaline Casts,Urine Many per lpf (None Seen); Ketones,Urine Negative (Negative); Leukocyte Esterase,Urine Negative (Negative); Mucus,Urine Few per lpf (None-Few); Nitrite,Urine Negative (Negative); PH,Urine 5.5 pH Units (5.0-8.0); Protein,Urine Trace mg/dL (Neg-Trace); RBC,Urine TNTC per hpf (0-3); Squamous Epithelial Cell,Urine Few per hpf (None-Few); Transitional Epi Cells,Urine Few per hpf (None-Few); Urobilinogen,Urine Normal (Normal); WBC,Urine 15-30 per hpf (0-3)
[2020-10-19] MEDS: Ipratropium/Albuterol Neb 3 ML IH SCH ×7 (00:46→23:28)
[2020-10-19 01:20] LABS: Hemoglobin 7.9 g/dL (11.5-15.4); Mean Corpuscular HGB Conc 29.3 g/dL (31.6-35.5); Mean Corpuscular Hemoglobin 30.5 pg (28.0-33.3); Mean Corpuscular Volume 104.2 fL (83.0-100.0); Mean Platelet Volume 9.9 fL (9.4-12.4); Platelet Count 242 K/mcL (140-400); Red Blood Count 2.59 M/mcL (3.82-4.97); Red Cell Distribution Width 15.1 % (11.5-14.5); White Blood Count 6.4 K/mcL (4.3-11.1)
[2020-10-19 01:44] LABS: Calcium 9.6 mg/dL (8.6-10.3); Potassium 4.2 mEq/L (3.5-5.1)
[2020-10-19 02:02] LABS: Magnesium 1.9 mg/dL (1.6-2.6); Phosphorous 3.5 mg/dL (2.7-4.5)
[2020-10-19] MEDS: *HR* Heparin 5,000 UNIT/ML VIAL SQ SCH ×2 (05:47→17:06)
[2020-10-19] MEDS: cefTRIAXone 1,000 MG in Water for inj. (sterile) 10 ML IVP SCH (09:47)
[2020-10-19] MEDS: Valsartan 160 MG TABLET PO SCH (09:50)
[2020-10-19] MEDS: allopurinoL 100 MG TABLET PO SCH (09:50)
[2020-10-19] MEDS: Gabapentin 400 MG CAPSULE PO SCH ×3 (09:50→20:31)
[2020-10-19] MEDS: Aspirin Enteric Coated 81 MG Tablet PO SCH (09:50)
[2020-10-19] MEDS: calcitrioL 0.25 MCG CAPSULE PO SCH (09:50)
[2020-10-19] MEDS: Cyanocobalamin (B-12) 1,000 MCG TABLET PO SCH (09:51)
[2020-10-19] MEDS: Vancomycin Oral Soln 125 MG/2.5 ML UDC PO SCH ×4 (09:51→20:32)
[2020-10-19] MEDS: Lactobacillus 1 EACH CAP.SPRINK PO SCH ×2 (09:51→20:31)
[2020-10-19] MEDS: carvediloL 6.25 MG TABLET PO SCH ×2 (09:52→17:07)
[2020-10-20] MEDS: Ipratropium/Albuterol Neb 3 ML IH SCH ×5 (03:39→19:46)
[2020-10-20 03:40] LABS: Basophils % 0.5 %; Eosinophils # 0.2 K/mcL (0.0-0.6); Eosinophils % 2.8 %; Hematocrit 26.9 % (35.3-44.9); Hemoglobin 7.9 g/dL (11.5-15.4); Immature Granulocytes % 1.3 % (0-4); Lymphocytes # 0.9 K/mcL (0.6-4.6); Lymphocytes % 14.2 %; Mean Corpuscular HGB Conc 29.4 g/dL (31.6-35.5); Mean Corpuscular Hemoglobin 29.9 pg (28.0-33.3); Mean Corpuscular Volume 101.9 fL (83.0-100.0); Mean Platelet Volume 9.8 fL (9.4-12.4); Monocytes # 0.7 K/mcL (0.0-1.3); Monocytes % 10.7 %; Neutrophils # 4.3 K/mcL (1.6-8.9); Platelet Count 225 K/mcL (140-400); Red Blood Count 2.64 M/mcL (3.82-4.97); Red Cell Distribution Width 14.9 % (11.5-14.5); Segmented Neutrophils % 70.5 %; White Blood Count 6.1 K/mcL (4.3-11.1)
[2020-10-20 03:59] LABS: Calcium 9.8 mg/dL (8.6-10.3); Potassium 4.6 mEq/L (3.5-5.1)
[2020-10-20] MEDS: *HR* Heparin 5,000 UNIT/ML VIAL SQ SCH ×2 (04:53→18:13)
[2020-10-20] MEDS: Aspirin Enteric Coated 81 MG Tablet PO SCH (09:16)
[2020-10-20] MEDS: Valsartan 160 MG TABLET PO SCH (09:16)
[2020-10-20] MEDS: Gabapentin 400 MG CAPSULE PO SCH ×2 (09:16→15:07)
[2020-10-20] MEDS: allopurinoL 100 MG TABLET PO SCH (09:17)
[2020-10-20] MEDS: Cyanocobalamin (B-12) 1,000 MCG TABLET PO SCH (09:17)
[2020-10-20] MEDS: Lactobacillus 1 EACH CAP.SPRINK PO SCH (09:17)
[2020-10-20] MEDS: Vancomycin Oral Soln 125 MG/2.5 ML UDC PO SCH ×3 (09:17→18:13)
[2020-10-20] MEDS: calcitrioL 0.25 MCG CAPSULE PO SCH (09:17)
[2020-10-20] MEDS: carvediloL 6.25 MG TABLET PO SCH ×2 (09:17→18:13)
[2020-10-20 10:33] VITALS: PULSE 70
[2020-10-20 15:50] VITALS: BP 142/80; TEMP 98.4
[2020-10-20 16:26] LABS: Adenovirus Not Detected (Not Detect); Bordetella Pertussis Not Detected (Not Detect); Chlamydophila pneumoniae Not Detected (Not Detect); Coronavirus 229E Not Detected (Not Detect); Coronavirus HKU1 Not Detected (Not Detect); Coronavirus NL63 Not Detected (Not Detect); Coronavirus OC43 Not Detected (Not Detect); Human Metapneumovirus Not Detected (Not Detect); Human Rhinovirus/Enterovirus Not Detected (Not Detect); Influenza A Subtype 2009 H1 Not Detected (Not Detect); Influenza B Not Detected (Not Detect); Mycoplasma pneumoniae Not Detected (Not Detect); Parainfluenza Virus 1 Not Detected (Not Detect); Parainfluenza Virus 2 Not Detected (Not Detect); Parainfluenza Virus 3 Not Detected (Not Detect); Parainfluenza Virus 4 Not Detected (Not Detect); Respiratory Syncytial Virus Not Detected (Not Detect); SARS-CoV-2 Not Detected (Not Detect)
[2020-10-20 19:48] VITALS: O2SAT 99
== END 2020-10-20 20:10 | DRG 871 ==
LOC: EMEROOARM 20:16 → 2NNU 20:16 → SUATTDRO 10-09 03:00 → 2NNU 10-09 03:30 → ICNU 10-09 10:47 → 2ANU 10-11 15:16
PROVIDERS: ADMIT Internal Medicine; ATTEND Family Medicine